=== PATIENT | female | born 1945 | race Caucasian/White ===

== ENCOUNTER 2018-01-09 16:30 | Inpatient (IN) | payer OTHER, MEDICARE ==
--- OUTSIDE RECORDS SUMMARY | 2018-01-09 16:32 | XMS REPORT | Summary of Care ---
:1945 Author Name HOLLIE ANN M.D. Address Unavailable Unavailable , Care Team Providers Name Role Phone SETH Ramirez, HOLLIE Unavailable Unavailable HEATHER MEAD MD Unavailable Unavailable SETH DAVID [place], JERO CASTILLO Unavailable Unavailable Unavailable Unavailable Unavailable Functional Status Name Dates Details Functional status health issues are not documented Status: Name Dates Details Cognitive status health issues are not documented Status: Problems Name Dates Details Injury of left wrist, initial encounter (959.3, S69.92XA) Status: Active Medications Name Dates Details Trulicity SOPN Refills: 0 Active MetFORMIN HCl - 1000 MG Oral Tablet Refills: 0 Active Naproxen TABS Refills: 0 Active Aspirin AD/Antacid TABS Refills: 0 Active Atorvastatin Calcium 10 MG Oral Tablet Refills: 0 Active Zolpidem Tartrate 10 MG Oral Tablet Refills: 0 Active Celecoxib CAPS Refills: 0 Active Metoprolol Succinate ER 25 MG Oral Tablet Extended Release 24 Hour Refills: 0 Active L-Thyroxine Sodium 88 MCG TABS Refills: 0 Active DULoxetine HCl - 30 MG Oral Capsule Delayed Release Particles Refills: 0 Active Lisinopril 20 MG Oral Tablet Refills: 0 Active Methylpred 4 MG TABS Refills: 0 Active Allergies and Adverse Reactions Name Dates Details No Known Drug Allergies (Allergy) Status: Active Past Medical History Name Dates Details History of arthritis (V13.4, Z87.39) Status: Resolved History of diabetes mellitus (V12.29, Z86.39) Status: Resolved History of hypertension (V12.59, Z86.79) Status: Resolved History of malignant neoplasm (V10.90, Z85.9) Status: Resolved History of osteoporosis (V13.59, Z87.39) Status: Resolved History of pneumonia (V12.61, Z87.01) Status: Resolved History of tumor (V13.89, Z87.898) Status: Resolved Procedures Procedure Dates Details History of Knee surgery Completed History of Hysterectomy Completed Immunization Name Dates Details Immunizations not documented Family History Name Dates Details Family history of arthritis (V17.7, Z82.61) Status: Active Family history of malignant neoplasm (V16.9, Z80.9) Status: Active Social History Name Dates Details - Status: Name Dates Details Never smoker Vital Signs Date Test Result Details No Known Vitals to report Results Date Description Value Details Results not documented Plan of Care Name Dates Details Planned Observations Planned Goals not documented Instructions Name Dates Details Instructions not documented Encounters Appointment; HOLLIE ANN M.D. On: 07-May-2017 13:15 Encounter Diagnosis: Problem not documented Appointment; HLOLIE ANN M.D. On: 16-May-2017 13:00 Encounter Diagnosis: Problem not documented Appointment; HOLLIE ANN M.D. On: 31-May-2017 13:30 Encounter Diagnosis: Problem not documented Appointment; HOLLIE ANN M.D. On: 07-Jun-2017 14:45 Encounter Diagnosis: Problem not documented Appointment; HOLLIE ANN M.D. On: 05-Jul-2017 13:00 Encounter Diagnosis: Problem not documented
--- OUTSIDE RECORDS SUMMARY | 2018-01-09 16:32 | XMS REPORT | Continuity of Care Document ---
:1945 Author Organization [facility] Address [address] [place] [address] Phone Unavailable Care Team Providers Name Role Phone HEATHER MEAD Primary Care Physician Insurance Providers Guarantor Frances Park Address [address] [place] [address] Email NONE Payer Medicare Policy Number [id number] Subscriber's Name Frances Park Relationship Self / Same As Patient Group Number NA Group Name NA Payer [facility] Healthcare Options Policy Number [id number] Subscriber's Name Frances Park Relationship Self / Same As Patient Group Number PLAN F Group Name [facility] Advance Directives Directive Response Recorded Date/Time Advance Directive on File No 12/29/17 4:30pm Resuscitation Status Full Code 12/31/17 1:13pm Name of Surrogate/Decision Maker NA 12/29/17 11:52am Patient/Family Given Education Material R/T Directives? No 12/29/17 4:30pm Chief Complaint and Reason for Visit Chief Complaint PNEUMONIA,DYSPNEA Reason for Visit Dyspnea Pneumonia Takotsubo cardiomyopathy Elevated troponin I level Mourning CAD (coronary artery disease) Problems Medical Problem Onset Date Status CAD (coronary artery disease) Unknown Acute Dyspnea Unknown Acute Elevated troponin Unknown Elevated troponin I level Unknown Acute Mourning Unknown Acute Pneumonia Unknown Acute Takotsubo cardiomyopathy Unknown Acute Medications Current Home Medications Medication Dose Units Route Directions Days Qty Instructions Start Date Apixaban * 2.5 Mg ORAL Twice A Day (Eliquis *) 2.5 Mg Tab Atorvastatin 40 Mg ORAL Once Daily At 30 Tablet 01/03/18 Calcium * Bedtime for (Lipitor *) 40 Dyslipidemia Mg Tab Furosemide 40 Mg ORAL Twice A Day for 60 Tablet 01/03/18 (Lasix 40 Mg*) Chf 40 Mg Tab Levofloxacin 1 Tab ORAL Daily for Uti 7 Tablet 01/03/18 (Levaquin 500 Mg*) 500 Mg Tab Lisinopril 20 Mg ORAL Twice A Day (Prinivil 20 Mg*) 20 Mg Tab Metoprolol 1 Tab ORAL Twice A Day 60 Tablet Tartrate (Lopressor *) 50 Mg Tab Social History Social History Problem Response Recorded Date/Time Onset Date Status Hx Recent Loss Y - 12/29/2017 4:30pm Not Applicable Not Applicable Smoking Status Start Date Stop Date Former smoker Hospital Discharge Instructions No hospital discharge instruction information available. Plan of Care Discharge Date 01/03/18 11:56am Disposition PATIENT DISCHARGE HOME OR SELF Instructions/Education Provided Furosemide tablets Shortness of Breath, Adult Atorvastatin tablets Levofloxacin tablets Community-Acquired Pneumonia, Adult Forms Provided Portal Welcome Letter Prescriptions See Medication Section Care Plan and Goals OK TO DC IV AND DC HOME FOLLOW-UP WITH PRIMARY CARE PROVIDER IN 1-2 WEEKS FOLLOW-UP WITH CARDIOLOGY IN 1-2 WEEKS RETURN TO THE ER IF SYMPTOMS WORSENS CALL DR. ALCANTAR AT [phone] IF ANY QUESTIONS REGARDING HOSPITAL STAY. PLEASE CALL THE FLOOR AT [phone] IF ANY MEDICATION OR NURSING QUESTIONS Functional Status No functional status information available. Allergies, Adverse Reactions, Alerts No known allergies. Immunizations No immunization information available. Vital Signs Acute Vital Signs Vital Response Date/Time Blood Pressure 144/73 mm Hg 01/03/2018 11:11am Pulse Pulse Rate (adult) 66 beats per minute (60 - 100) 01/03/2018 11:11am Respiratory Rate 18 breaths per minute (10 - 24) 01/03/2018 9:15am Temperature Source Oral 01/03/2018 9:15am Height 5 ft 6 in 12/29/2017 11:38am Weight 201.50 lb 01/03/2018 4:50am Body Mass Index 32.5 kg/m^2 01/03/2018 4:50am Results Laboratory Results Test Name Result Units Flags Reference Collection Result Comments Date/Time Date/Time White Blood Count 8.3 K/ul 4.0-11.5 01/02/2018 01/02/2018 RUN ON 5:24am 6:09am EMERALD Red Blood Count 4.48 M/ul 3.80-5.20 01/02/2018 01/02/2018 5:24am 6:09am Hemoglobin 13.2 g/dl 10.5-15.7 01/02/2018 01/02/2018 5:24am 6:09am Hematocrit 41.6 % 34.0-50.0 01/02/2018 01/02/2018 5:24am 6:09am Mean Corpuscular 92.8 fl 78-98 01/02/2018 01/02/2018 Volume 5:24am 6:09am Mean Corpuscular 29.5 pg 26.2-33.4 01/02/2018 01/02/2018 Hemoglobin 5:24am 6:09am Mean Corpuscular 31.7 g/dl 31.5-36.2 01/02/2018 01/02/2018 Hemoglobin Concent 5:24am 6:09am Red Cell 14.5 % 11.5-15.5 01/02/2018 01/02/2018 Distribution Width 5:24am 6:09am Platelet Count 185 K/ul 137-338 01/02/2018 01/02/2018 5:24am 6:09am Mean Platelet 10.1 fl 8.4-11.8 01/02/2018 01/02/2018 Volume 5:24am 6:09am Neutrophils (%) 68.6 % 44.4-80.1 01/02/2018 01/02/2018 (Auto) 5:24am 6:09am Lymphocytes (%) 23.5 % 10.0-50.0 01/02/2018 01/02/2018 (Auto) 5:24am 6:09am Monocytes (%) 7.9 % 3.6-12.04 01/02/2018 01/02/2018 (Auto) 5:24am 6:09am Eosinophils (%) 1.5 % 0.0-5.41 01/01/2018 01/01/2018 (Auto) 5:37am 5:40am Basophils (%) 0.7 % 0.0-0.79 01/01/2018 01/01/2018 (Auto) 5:37am 5:40am Prothrombin Time 10.9 SECONDS 10.3-12.3 12/29/2017 12/29/2017 11:47am 12:05pm THERAPEUTIC LEVEL: 1.5 to 1.9 times normal range of PT Prothromb Time 0.99 12/29/2017 12/29/2017 International 11:47am 12:05pm Recommended therapeutic range for patients receiving Ratio warfarin (coumadin) therapy: INR is 2.0 to 3.0 Recommended range for patients with mechanical prosthetic heart valves: INR is 2.5 to 3.5 Activated Partial 28.4 SECONDS 22.5-37.0 12/29/2017 12/29/2017 Thromboplast Time 11:47am 12:05pm POC Capillary 239 mg/dL H 70.0 - 110 01/03/2018 01/03/2018 Blood Glucose 11:25am 11:26am (Chem) Random Glucose 188 mg/dL H 82-115 01/02/2018 01/02/2018 7:10am 7:56am Blood Urea 20 mg/dL 8-01/02/2018 01/02/2018 Nitrogen 7:10am 7:56am Serum Osmolality 289 280-300 01/02/2018 01/02/2018 7:10am 7:56am Creatinine 0.7 mg/dL 0.50-0.90 01/02/2018 01/02/2018 7:10am 7:56am Glomerular > 60.00 01/02/2018 01/02/2018 GFR RESULTS ARE REPORTED IN mL/min/1.73m2. Filtration Rate 7:10am 7:56am Calc Normal GFR: >60mL/min Moderately decreased GFR: 30-59 mL/min Severely decreased GFR: 15-29 mL/min Kidney Failure (or Dialysis): <15 mL/min The calculated eGFR is not valid for patients younger than 18 years or older than 75 years. BUN/Creatinine 28.6 H 12-20 01/02/2018 01/02/2018 Ratio 7:10am 7:56am Sodium Level 141 mmol/L 135-145 01/02/2018 01/02/2018 7:10am 7:56am Potassium Level 3.3 mmol/L L 3.5-5.2 01/02/2018 01/02/2018 7:10am 7:56am Chloride Level 95 mmol/L L 98-108 01/02/2018 01/02/2018 7:10am 7:56am Carbon Dioxide 33 mmol/L H 21-32 01/02/2018 01/02/2018 Level 7:10am 7:56am Anion Gap 16.3 mEq/L 12-20 01/02/2018 01/02/2018 7:10am 7:56am Calcium Level 9.1 mg/dL 8.8-10.2 01/02/2018 01/02/2018 7:10am 7:56am Phosphorus Level 2.7 mg/dL 2.5-4.5 01/02/2018 01/02/2018 7:10am 7:56am Magnesium Level 1.6 mg/dL 1.6-2.4 01/02/2018 01/02/2018 7:10am 7:56am Total Protein 6.6 g/dL 6.6-8.7 01/02/2018 01/02/2018 7:10am 7:56am Albumin 3.4 g/dL L 3.5-5.2 01/02/2018 01/02/2018 7:10am 7:56am Globulin 3.2 gm/dL 01/02/2018 01/02/2018 7:10am 7:56am Albumin/Globulin 1.1 >1.0 01/02/2018 01/02/2018 Ratio 7:10am 7:56am Total Bilirubin 0.5 mg/dL 0.0-1.2 01/02/2018 01/02/2018 7:10am 7:56am Aspartate Amino 71 U/L #H 15-32 01/02/2018 01/02/2018 Transf (AST/SGOT) 7:10am 7:56am Alanine 71 U/L H 0-33 01/02/2018 01/02/2018 Aminotransferase 7:10am 7:56am (ALT/SGPT) RD-Aiy-F-Type 2023 pg/mL H 0-125 12/29/2017 12/29/2017 Natriuretic 11:47am 12:11pm Peptide Total Alkaline 92 U/L 35-105 01/02/2018 01/02/2018 Phosphatase 7:10am 7:56am Creatine Kinase 123 U/L 20-180 12/31/2017 12/31/2017 5:06am 5:39am Troponin I 1.02 ng/mL #H* 0.0-0.5 12/31/2017 12/31/2017 Results have been broadcasted to patient's location and 5:06am 5:51am called to (rosa)Nolberto By ROSALVA RODRIGUEZ 12/31/17 @0547 Results read back for confirmation. Creatine Kinase MB 4.3 ng/ml H 0.0-3.6 12/31/2017 12/31/2017 5:06am 5:51am DIAGNOSTIC CITERIA: CKMB CKMB RELATIVE INDEX SUGGESTIVE OF NON-AMI < or=5 N/A LARKIN ZONE (INCONCLUSIVE) > 5 < or=4 SUGGESTIVE OF AMI >5 > 4 Myoglobin 73 ng/mL H 25-58 12/29/2017 12/29/2017 11:47am 12:11pm Microbiology Results Procedure Source Organism/Result Collection Result Result Status Date/Time Date/Time Blood Culture Blood SPECIMEN HAS BEEN 12/29/2017 12/29/2017 Preliminary RECEIVED IN LAB AND 2:34pm 2:36pm IS IN PROGRESS. Procedures Procedure Status Date Provider(s) X-ray of chest, single view Completed 12/29/17 DIONISIO MORALES MD Computed tomography angiography of chest for Completed 12/29/17 DIONISIO MORALES MD pulmonary embolism CT thorax wo contrast Completed 01/01/18 LAURA SMITH Computed tomography of abdomen without contrast Completed 01/01/18 LAURA SMITH Encounters Encounter Location Arrival/Admit Date Discharge/Depart Date Attending Provider Admitted Kaden 12/29/17 3:44pm MY [facility] Recent Diagnosis Dyspnea Pneumonia Takotsubo cardiomyopathy Elevated troponin I level Mourning CAD (coronary artery disease)
--- NOTE | 2018-01-09 17:45 | RAD REPORT ---
EXAM DESCRIPTION: RAD - Chest Single View - 01/09/2018 5:36 pm CLINICAL HISTORY: SOB Chest pain. COMPARISON: CHEST PA AND LAT 2 VIEW dated 03/13/2012; CHEST SINGLE VIEW dated 02/29/2012; CHEST PA A ND LAT 2 VIEW dated 02/06/2012; CHEST PA AND LAT 2 VIEW dated 11/04/2010 FINDINGS: Portable technique limits examination quality. The lungs are grossly clear. The heart is moderately prominent in size. No displaced fractures.Aortic atherosclerosis. IMPRESSION: Moderate cardiomegaly.
[2018-01-09 18:06] LABS: Absolute Lymphocytes (CBC) 2.2 K/uL (0.7-4.9); Absolute Monocytes 0.8 K/uL (0.1-1.3); Absolute Neutrophil 4.8 K/uL (1.8-8.0); Basophils % 1.1 % (0-1.3); Eosinophils % 1.3 % (0-4.4); Hematocrit 41.8 % (36.0-45.0); Lymphocytes % 27.1 % (15.3-44.8); MCH 29.7 pg (27.0-35.0); MCV 89.4 fL (80-100); Monocytes % 10.5 % (3.3-12.3); RBC Red Blood Cell Count 4.68 M/uL (3.86-4.86)
[2018-01-09 18:14] LABS: Protime INR 1.64
[2018-01-09] MEDS ORDERED: ONDANSETRON 4 MG/2 ML VIAL ONE (18:17)
[2018-01-09] MEDS ORDERED: FENTANYL CITR 100 MCG/2 ML ONE (18:17)
[2018-01-09] MEDS ORDERED: NA CHLORIDE 0.9% 250 ML ONE ×2 (18:27→18:52)
[2018-01-09 18:32] LABS: Albumin 3.9 g/dL (3.4-5.0); Bilirubin Direct 0.2 mg/dL (0-0.2); Bilirubin Total 0.5 mg/dL (0.2-1.0); Magnesium 1.8 mg/dL (1.8-2.4); Potassium 3.9 mmol/L (3.5-5.1); Protein, Total 7.7 g/dL (6.4-8.2); Troponin (Emerg Dept Use Only) 0.02 ng/mL (0.0-0.045)
[2018-01-09 19:24] LABS: Urine Bacteria 20-50 /HPF (<20); Urine Culture Reflex Order NOT NEEDED
[2018-01-09 19:34] LABS: Urine Blood TRACE (NEG); Urine Glucose NEGATIVE (NEG); Urine Protein NEGATIVE (NEG); Urine Specific Gravity >1.030 (1.005-1.030)
[2018-01-09] MEDS ORDERED: NA CHLORIDE 0.9% 1,000 ML ONE (20:00)
--- NOTE | 2018-01-09 20:44 | EDPHYS ---
Physician Documentation [facility] Name: Yamileth Taylor Age: 72 yrs Sex: Female : 1945 Arrival Date: 01/09/2018 Time: 16:39 Bed 30 Private MD: ED Physician Alok Ivey HPI: 01/09 17:15 This 72 yrs old Female presents to ER via EMS with complaints of Shortness Of cp Breath. 17:15 The patient has shortness of breath at rest, that occurred at home, suddenly, now cp resolved. Patient reports she believes it was due to anxiety. 17:15 Duration: The symptoms single episode. Associated signs and symptoms: Pertinent cp positives: nausea, vomiting, general weakness, Pertinent negatives: chest pain, productive cough, diaphoresis, dizziness, fever, hemoptysis. Severity of symptoms: in the emergency department the symptoms have improved. Historical: - Allergies: 16:47 No Known Allergies; kr2 - Home Meds: 16:47 Metformin Oral [Active]; Lantus Sub-Q [Active]; Lisinopril Oral [Active]; Lasix Oral kr2 [Active]; levothyroxine oral [Active]; Eliquis oral oral [Active]; Metoprolol Tartrate Oral [Active]; - PMHx: 16:47 Atrial Fib; Hypertension; Myocardial infarction; kr2 16:51 Rheumatoid Arthritis; kr2 - PSHx: 16:47 Hysterectomy; Cardiac Cath; Wrist; kr2 - Immunization history:: Adult Immunizations up to date. - Social history:: Smoking status: Patient/guardian denies using tobacco. - Ebola Screening: : No symptoms or risks identified at this time. ROS: 17:22 Constitutional: Positive for poor PO intake, Negative for body aches, chills, fever. cp 17:22 Eyes: Negative for injury, pain, redness, and discharge. cp 17:22 ENT: Negative for drainage from ear(s), ear pain, sore throat, difficulty swallowing, difficulty handling secretions. 17:22 Cardiovascular: Negative for chest pain, edema, palpitations. 17:22 Respiratory: Positive for shortness of breath, Negative for cough, wheezing. 17:22 Abdomen/GI: Positive for nausea, vomiting, Negative for abdominal pain, diarrhea, constipation, black/tarry stool, rectal bleeding. 17:22 Back: Negative for pain at rest, pain with movement. 17:22 Skin: Negative for cellulitis, rash. 17:22 Neuro: Positive for general weakness, Negative for altered mental status, dizziness, headache, syncope, near syncope. 17:22 All other systems are negative. Exam: 16:53 ECG was reviewed by the Attending Physician. cp 17:28 Constitutional: The patient appears in no acute distress, alert, awake, cp non-diaphoretic, non-toxic, well developed, well nourished. 17:28 Head/Face: Normocephalic, atraumatic. Eyes: Pupils equal round and reactive to light, cp extra-ocular motions intact. Lids and lashes normal. Conjunctiva and sclera are non-icteric and not injected. Cornea within normal limits. Periorbital areas with no swelling, redness, or edema. 17:28 ENT: External ear(s): are unremarkable, Ear canal(s): are normal, clear, TM's: bulging, is not appreciated, bilaterally, dullness, bilaterally, erythema, is not appreciated, bilaterally, Nose: is normal, Mouth: Lips: dry, Oral mucosa: dry, Posterior pharynx: Airway: no evidence of obstruction, patent, Uvula: midline, swelling, is not appreciated, erythema, that is mild, exudate, is not appreciated, Voice: is normal. 17:28 Neck: ROM/movement: is normal, is supple, without pain, no range of motions limitations, no meningismus, no nuchal rigidity. 17:28 Chest/axilla: Inspection: normal, Palpation: is normal, no crepitus, no tenderness. 17:28 Cardiovascular: Rate: normal, Rhythm: regular, Edema: is not appreciated, JVD: is not appreciated. 17:28 Respiratory: the patient does not display signs of respiratory distress, Respirations: normal, no use of accessory muscles, no retractions, no splinting, no tachypnea, Breath sounds: decreased breath sounds, that are mild, are located in both bases, stridor, is not appreciated, wheezing: is not appreciated. 17:28 Abdomen/GI: Inspection: abdomen appears normal, Bowel sounds: active, all quadrants, Palpation: abdomen is soft and non-tender, in all quadrants, rebound tenderness, is not appreciated, voluntary guarding, is not appreciated, involuntary guarding, is not appreciated. 17:28 Back: pain, that is mild, of the mid back area, ROM is normal. 17:28 Skin: cellulitis, is not appreciated, no rash present. 17:28 Neuro: Orientation: to person, place \T\ time. Mentation: lucid, able to follow commands, Cerebellar function: is grossly normal, Motor: moves all fours, general weakness w/o focal deficits, Sensation: no obvious gross deficits. Vital Signs: 16:49 BP 91 / 79; Pulse 76; Resp 16; Temp 99; Pulse Ox 99% on R/A; Weight 88.45 kg; Height 5 kr2 ft. 4 in. (162.56 cm); Pain 0/10; 17:05 BP 96 / 79; Pulse 67; Resp 20; Pulse Ox 96% ; kr2 19:14 BP 97 / 60; Pulse 78; Resp 15; Pulse Ox 100% on R/A; kr2 23:09 BP 124 / 72; Pulse 71; Resp 17; Pulse Ox 98% on R/A; kr2 16:49 Body Mass Index 33.47 (88.45 kg, 162.56 cm) kr2 MDM: 17:08 Patient medically screened. cp 19:00 Data reviewed: vital signs, nurses notes, lab test result(s), EKG, radiologic studies, cp plain films. 19:00 Test interpretation: by ED physician or midlevel provider: ECG, plain radiologic cp studies. 19:20 Physician consultation: Ta Kam MD was contacted at 19:20, regarding admission, cp to the telemetry unit. patient's condition. 01/09 17:16 Order name: Basic Metabolic Panel; Complete Time: 18:39 cp 01/09 18:39 Interpretation: Normal except: NA 135; CL 93; GLUC 131; BUN 60; CRE 5.00; GFR 9. cp 01/09 17:16 Order name: CBC with Diff; Complete Time: 18:21 cp 01/09 18:21 Interpretation: Normal except: RDW 15.7. cp 01/09 17:16 Order name: LFT's; Complete Time: 18:39 cp 01/09 20:44 Interpretation: Normal except: GLOB 3.8; A/G 1.0. cp 01/09 17:16 Order name: Magnesium; Complete Time: 18:39 cp 01/09 17:16 Order name: NT PRO-BNP; Complete Time: 18:39 cp 01/09 20:44 Interpretation: Abnormal: NT PRO-BNP 3524. cp 01/09 17:16 Order name: PT-INR; Complete Time: 18:21 cp 01/09 18:21 Interpretation: Abnormal: PT 19.4. cp 01/09 17:16 Order name: Troponin (emerg Dept Use Only); Complete Time: 18:39 cp 01/09 17:16 Order name: XRAY Chest (1 view); Complete Time: 18:21 cp 01/09 18:21 Interpretation: Report review. cp 01/09 17:16 Order name: Urine Microscopic Only; Complete Time: 19:47 cp 01/09 20:44 Interpretation: Normal except: URBC 5-10; UBACT 20-50; SQEPI LOADED. cp 01/09 19:02 Order name: Urine Dipstick--Ancillary (enter results); Complete Time: 19:47 bd 01/09 16:49 Order name: EKG - Nurse/Tech; Complete Time: 16:49 kr2 01/09 17:16 Order name: EKG; Complete Time: 17:17 cp 01/09 17:16 Order name: Cardiac monitoring; Complete Time: 17:48 cp 01/09 17:16 Order name: IV Saline Lock; Complete Time: 17:48 cp 01/09 17:16 Order name: Labs collected and sent; Complete Time: 17:48 cp 01/09 17:16 Order name: O2 Per Protocol; Complete Time: 17:48 cp 01/09 17:16 Order name: O2 Sat Monitoring; Complete Time: 17:48 cp 01/09 17:16 Order name: Urine Dipstick-Ancillary (obtain specimen); Complete Time: 19:07 cp 01/09 19:15 Order name: Misc. Order: monitor renal output; Complete Time: 19:19 cp 01/09 21:00 Order name: CONS Physician Consult EDMS EC:53 Rate is 70 beats/min. Rhythm is irregularly irregular. QRS interval is normal at 80 cp msec. QT interval is normal. T waves are Inverted in leads aVL, V2, V3. Interpreted by me. Reviewed by me. Administered Medications: 18:13 Drug: fentaNYL (PF) 25 mcg Route: IVP; Site: right forearm; kr2 18:30 Follow up: Response: No adverse reaction; Pain is decreased kr2 18:23 Drug: NS 0.9% 250 ml Route: IV; Rate: bolus; Site: right forearm; kr2 19:10 Follow up: Response: No adverse reaction; IV Status: Completed infusion kr2 19:06 Drug: fentaNYL (PF) 25 mcg Route: IVP; Site: right forearm; kr2 19:19 Follow up: Response: No adverse reaction; Pain is decreased kr2 19:07 Drug: NS 0.9% 250 ml Route: IV; Rate: bolus; Site: right forearm; kr2 19:42 Follow up: Response: No adverse reaction; IV Status: Completed infusion kr2 19:49 Not Given (Physician Discretion): NS 0.9% 250 ml IV at calculated rate once cp 20:13 Drug: NS 0.9% 1000 ml Route: IV; Rate: 1000 ml; Site: right forearm; kr2 21:30 Follow up: Response: No adverse reaction kr2 Disposition: 01/09/18 20:43 Hospitalization ordered by Ta Kam for Inpatient Admission. Preliminary diagnosis is Acute kidney failure. - Bed requested for Telemetry/MedSurg (Inpatient). - Status is Inpatient Admission. kr2 - Condition is Stable. - Problem is new. - Symptoms have improved. UTI on Admission? No Signatures: Dispatcher [employer] EDMS Zac Gillis PA PA cp Thompson, [facility] Deborah Brasher RN RN kr2 Corrections: (The following items were deleted from the chart) 18:28 18:28 This 72 yrs old Female presents to ER via EMS with complaints of cp Shortness Of Breath. cp 22:19 20:43 Hospitalization Ordered by Ta Kam MD for Inpatient Admission. Preliminary mt diagnosis is Acute kidney failure. Bed requested for Telemetry/MedSurg (Inpatient). Status is Inpatient Admission. Condition is Stable. Problem is new. Symptoms have improved. UTI on Admission? No. cp 23:45 19:50 Patterson ordered. cp kr2 01/10 00:02 01/09 22:19 01/09/2018 20:43 Hospitalization Ordered by Ta Kam MD for Inpatient kr2 Admission. Preliminary diagnosis is Acute kidney failure. Bed requested for Telemetry/MedSurg (Inpatient). Status is Inpatient Admission. Condition is Stable. Problem is new. Symptoms have improved. UTI on Admission? No. mt
--- NOTE | 2018-01-09 20:44 | ER ---
Nurse's Notes [facility] Name: Yamileth Taylor Age: 72 yrs Sex: Female : 1945 Arrival Date: 01/09/2018 Time: 16:39 Bed 30 Private MD: Diagnosis: Acute kidney failure Presentation: 01/09 16:39 Presenting complaint: EMS states: Patient called them complaining of feeling short of kr2 breath, upon arrival to residence she anxious and was breathing fast but it resolved after calming her down. She was seen at [facility] 2 weeks ago for pneumonia and blood work showed she had a heart attack. They told her that her heart function was at 42%. Vital signs 113/70, pulse 69, blood glucose 137. Transition of care: patient was not received from another setting of care. Onset of symptoms was January 09, 2018 at 16:00. Risk Assessment: Do you want to hurt yourself or someone else? Patient reports no desire to harm self or others. Initial Sepsis Screen: Does the patient meet any 2 criteria? No. Patient's initial sepsis screen is negative. Does the patient have a suspected source of infection? No. Patient's initial sepsis screen is negative. Care prior to arrival: None. 16:39 Method Of Arrival: EMS: [facility] kr2 16:39 Acuity: LUCI 3 kr2 Triage Assessment: 16:47 General: Appears in no apparent distress. comfortable, well groomed, well developed, kr2 well nourished, Behavior is cooperative, anxious. Pain: Denies pain. EENT: Nares are clear Oral mucosa is moist. Neuro: Level of Consciousness is awake, alert, obeys commands, Oriented to person, place, time, situation, Appropriate for age. Cardiovascular: Denies chest pain, Capillary refill < 3 seconds in bilateral fingers Patient's skin is warm and dry. Rhythm is. Respiratory: Reports shortness of breath at rest Airway is patent Respiratory effort is even, unlabored, Respiratory pattern is regular, symmetrical, Onset: The symptoms/episode began/occurred just prior to arrival, the patient reports symptoms have resolved. GI: Abdomen is flat. Derm: Skin is intact, is fragile, Skin is pink, warm \T\ dry. Bruising that is dark purple, on bilateral upper arms. Musculoskeletal: Circulation, motion, and sensation intact. Historical: - Allergies: 16:47 No Known Allergies; kr2 - Home Meds: 16:47 Metformin Oral [Active]; Lantus Sub-Q [Active]; Lisinopril Oral [Active]; Lasix Oral kr2 [Active]; levothyroxine oral [Active]; Eliquis oral oral [Active]; Metoprolol Tartrate Oral [Active]; - PMHx: 16:47 Atrial Fib; Hypertension; Myocardial infarction; kr2 16:51 Rheumatoid Arthritis; kr2 - PSHx: 16:47 Hysterectomy; Cardiac Cath; Wrist; kr2 - Immunization history:: Adult Immunizations up to date. - Social history:: Smoking status: Patient/guardian denies using tobacco. - Ebola Screening: : No symptoms or risks identified at this time. Screenin:51 Abuse screen: Denies threats or abuse. Denies injuries from another. Nutritional kr2 screening: No deficits noted. Tuberculosis screening: No symptoms or risk factors identified. Fall Risk None identified. Assessment: 16:40 Reassessment: See triage assessment. Cardiovascular: Patient's skin is warm and dry. kr2 Rhythm is regular. Respiratory: Airway is patent Respiratory effort is even, unlabored, Respiratory pattern is regular, symmetrical, Breath sounds are clear bilaterally. 19:13 Reassessment: Patient instructed to keep a strict measurement of urine output, given kr2 hat for toilet. Patient verbalizes understanding. 20:01 Reassessment: Patient appears in no apparent distress at this time. Patient and/or kr2 family updated on plan of care and expected duration. Pain level reassessed. Patient is alert, oriented x 3, equal unlabored respirations, skin warm/dry/pink. Provider ordered montana insertion. I asked provider if we can monitor output by strict measurement due to patient being A\T\O, ambulatory and continent. Provider says to continue with montana insertion. Patient informed provider ordered montana insertion for strict monitoring of output due to kidney failure, instructed on placement procedure and risks. Patient states she wants to speak to admitting physician prior to insertion of catheter. 21:00 Reassessment: Patient appears in no apparent distress at this time. Patient and/or kr2 family updated on plan of care and expected duration. Pain level reassessed. Patient is alert, oriented x 3, equal unlabored respirations, skin warm/dry/pink. Patient denies pain at this time. 22:00 Reassessment: Patient appears in no apparent distress at this time. Patient and/or kr2 family updated on plan of care and expected duration. Pain level reassessed. Patient is alert, oriented x 3, equal unlabored respirations, skin warm/dry/pink. Patient denies pain at this time. 23:22 Reassessment: Patient refused montana catheter, provider notified. kr2 Vital Signs: 16:49 BP 91 / 79; Pulse 76; Resp 16; Temp 99; Pulse Ox 99% on R/A; Weight 88.45 kg; Height 5 kr2 ft. 4 in. (162.56 cm); Pain 0/10; 17:05 BP 96 / 79; Pulse 67; Resp 20; Pulse Ox 96% ; kr2 19:14 BP 97 / 60; Pulse 78; Resp 15; Pulse Ox 100% on R/A; kr2 23:09 BP 124 / 72; Pulse 71; Resp 17; Pulse Ox 98% on R/A; kr2 16:49 Body Mass Index 33.47 (88.45 kg, 162.56 cm) kr2 ED Course: 16:39 Patient arrived in ED. kr2 16:42 Triage completed. kr2 16:52 EKG done, by dietetic tech. reviewed by Alok Ivey MD. sm3 16:52 Arm band placed on. kr2 16:55 Deborah Brasher, RN is Primary Nurse. kr2 17:00 Warm blanket given. night monitor on. Pulse ox on. NIBP on. jp3 17:08 Zac Gillis PA is PHCP. cp 17:08 Alok Ivey MD is Attending Physician. cp 17:36 XRAY Chest (1 view) In Process Unspecified. EDMS 17:45 Initial lab(s) drawn, by nd, sent to lab. Inserted saline lock: 24 gauge in right jp3 forearm, using aseptic technique. Blood collected. 17:48 Troponin (emerg Dept Use Only) Sent. jp3 17:48 Basic Metabolic Panel Sent. jp3 17:48 CBC with Diff Sent. jp3 17:48 LFT's Sent. jp3 17:48 Magnesium Sent. jp3 17:48 NT PRO-BNP Sent. jp3 17:48 PT-INR Sent. jp3 17:48 Bed in low position. Call light in reach. Side rails up X 1. jp3 20:43 Ta Kam MD is Hospitalizing Provider. cp 01/10 00:00 No provider procedures requiring assistance completed. Patient admitted, IV remains in kr2 place. Administered Medications: 01/09 18:13 Drug: fentaNYL (PF) 25 mcg Route: IVP; Site: right forearm; kr2 18:30 Follow up: Response: No adverse reaction; Pain is decreased kr2 18:23 Drug: NS 0.9% 250 ml Route: IV; Rate: bolus; Site: right forearm; kr2 19:10 Follow up: Response: No adverse reaction; IV Status: Completed infusion kr2 19:06 Drug: fentaNYL (PF) 25 mcg Route: IVP; Site: right forearm; kr2 19:19 Follow up: Response: No adverse reaction; Pain is decreased kr2 19:07 Drug: NS 0.9% 250 ml Route: IV; Rate: bolus; Site: right forearm; kr2 19:42 Follow up: Response: No adverse reaction; IV Status: Completed infusion kr2 19:49 Not Given (Physician Discretion): NS 0.9% 250 ml IV at calculated rate once cp 20:13 Drug: NS 0.9% 1000 ml Route: IV; Rate: 1000 ml; Site: right forearm; kr2 21:30 Follow up: Response: No adverse reaction kr2 Intake: 19:18 IV: 500ml; Total: 500ml. kr2 21:23 PO: 80ml (Water); Total: 580ml. kr2 23:09 PO: 120ml (Water); IV: 1000ml (IV Fluid); Total: 1700ml. kr2 Output: 19:18 Urine: 50ml (Voided); Total: 50ml. kr2 21:23 Urine: 100ml; Total: 150ml. kr2 01/10 00:01 Urine: 125ml (Voided); Total: 275ml. kr2 Outcome: 01/09 20:43 Decision to Hospitalize by Provider. cp 01/10 00:00 Admitted to Tele accompanied by nurse, family with patient, via wheelchair, room 208, kr2 with chart, Report called to Jazmin Condition: good Instructed on the need for admit, Demonstrated understanding of instructions, follow-up care. 00:02 Patient left the ED. kr2 Signatures: Dispatcher [employer] EDMS Zac Gillis PA PA cp Reaves, Karey, RN RN kr2 Marielle Sanchez 3 Tunde Garcia jp3 Corrections: (The following items were deleted from the chart) 01/09 21:09 20:01 Reassessment: Patient appears in no apparent distress at this time. Patient kr2 and/or family updated on plan of care and expected duration. Pain level reassessed. Patient is alert, oriented x 3, equal unlabored respirations, skin warm/dry/pink. Provider ordered montana insertion. I asked provider if we can monitor output by strict measurement due to patient being A\T\O, ambulatory and continent. Provider says to continue with montana insertion. Patient informed provider order montana insertion for monitoring of output, instructed on placement and risk of infection. Patient wants to speak to admitting physician prior to insertion of catheter kr2
--- NOTE | 2018-01-09 22:50 | P.HP ---
Certification for Inpatient Patient admitted to: Inpatient With expected LOS: >2 Midnights Practitioner: I am a practitioner with admitting privileges, knowledge of patient current condition, hospital course, and medical plan of care. Services: Services provided to patient in accordance with Admission requirements found in Title 42 Section 412.3 of the Code of Federal Regulations Patient History Date of Service: 01/09/18 Reason for admission: Acute renal failure History of Present Illness: Ms Taylor is a 72-year-old woman with history of diabetes mellitus, CAD, hypertension was admitted 2 weeks ago in [facility] due to pneumonia. In that admission the patient had a ACS. She had cardiac catheterization, showing mild CAD without need to place a stent. Once the patient was discharged home, she progressively start feeling weak. Then she has had nausea and vomiting, unable to tolerate p.o. no history of diarrhea, fever or chills. She was discharged with Lasix as part of her home medication. Lab work in ER remarkable for elevated creatinine 5.0 and normal WBC count. Allergies No Known Allergies Allergy (Unverified 01/09/18 21:45) Home medications list reviewed: Yes - Past Medical/Surgical History -: Diabetes mellitus -: CAD -: Hypertension -: Atrial fibrillation -: Cardiac catheterization -: Hysterectomy - Family History Family History: Reviewed- Non-Contributory - Social History Smoking Status: Former smoker Alcohol use: Yes CD- Drugs: No Place of Residence: Home Review of Systems 10-point ROS is otherwise unremarkable Physical Examination - Physical Exam General: Alert, In no apparent distress HEENT: Atraumatic, PERRLA, Mucous membr. moist/pink, EOMI, Sclerae nonicteric Neck: Supple, 2+ carotid pulse no bruit, No LAD, Without JVD or thyroid abnormality Respiratory: Clear to auscultation bilaterally, Normal air movement Cardiovascular: Regular rate/rhythm, Normal S1 S2 Gastrointestinal: Normal bowel sounds, No tenderness Musculoskeletal: No tenderness Integumentary: No rashes Neurological: Normal speech, Normal strength at 5/5 x4 extr, Normal tone, Normal affect Lymphatics: No axilla or inguinal lymphadenopathy - Studies Laboratory Data (last 24 hrs) 01/09/18 17:40: PT 19.4 H, INR 1.64 01/09/18 17:40: WBC 7.9, Hgb 13.9, Hct 41.8, Plt Count 359 01/09/18 17:40: Sodium 135 L, Potassium 3.9, BUN 60 H, Creatinine 5.00 H, Glucose 131 H, Magnesium 1.8, Total Bilirubin 0.5, AST 17, ALT 28, Alkaline Phosphatase 82 Assessment and Plan - Problems (Diagnosis) (1) Acute renal injury Current Visit: Yes Status: Acute (2) Nausea & vomiting Current Visit: Yes Status: Acute Qualifiers: Vomiting type: unspecified Vomiting Intractability: unspecified Qualified Code(s): R11.2 - Nausea with vomiting, unspecified (3) Weakness Current Visit: Yes Status: Acute (4) Volume depletion Current Visit: Yes Status: Acute - Plan The patient will be admitted to the hospital due to nausea, vomiting and weakness secondary to acute renal injury. The etiology could be a combination of excess diuresis on top of previous contrast induced kidney injury, will continue challenging with fluids, consult church supervisor for evaluation recommendation. - Advance Directives Does patient have a Living Will: Yes Does patient have a Durable POA for Healthcare: No - Code Status/Comfort Care Code Status Assessed: Yes Code Status: Full Code
[2018-01-09] MEDS ORDERED: ACETAMINOPHEN 500 MG TAB PO PRN (23:05)
[2018-01-09] MEDS ORDERED: ONDANSETRON 4 MG/2 ML VIAL IV PRN (23:05)
[2018-01-10] MEDS: NA CHLORIDE 0.9% 1,000 ML IV SCH ×3 (00:39→14:27)
[2018-01-10] MEDS ORDERED: GLUCAGON 1 MG/VIAL IM PRN (03:36)
[2018-01-10] MEDS ORDERED: D50W 25 GM/50 ML SYRINGE IV PRN (03:36)
[2018-01-10] MEDS: TRAMADOL HCL 50 MG TAB PO PRN ×2 (03:52→14:26)
[2018-01-10 05:21] LABS: Absolute Lymphocytes (CBC) 1.6 K/uL (0.7-4.9); Absolute Monocytes 0.7 K/uL (0.1-1.3); Absolute Neutrophil 4.5 K/uL (1.8-8.0); Basophils % 1.2 % (0-1.3); Hematocrit 38.4 % (36.0-45.0); Lymphocytes % 22.3 % (15.3-44.8); MCH 29.4 pg (27.0-35.0); MPV 10.2 fL (7.6-11.3); Monocytes % 10.5 % (3.3-12.3); RBC Red Blood Cell Count 4.26 M/uL (3.86-4.86)
[2018-01-10 05:30] LABS: Potassium 3.3 mmol/L (3.5-5.1)
[2018-01-10 05:32] LABS: Urine Appearance CLEAR; Urine Bilirubin NEGATIVE (NEG); Urine Blood NEGATIVE (NEG); Urine Color YELLOW; Urine Glucose NEGATIVE (NEG); Urine Protein NEGATIVE (NEG); Urine Specific Gravity 1.015 (1.005-1.030); Urine Urobilinogen 0.2 mg/dL (0.2-1.0); Urine pH 5.5 (5.0-7.0)
[2018-01-10 05:34] LABS: Urine Microscopic Reflex NO UMIC
[2018-01-10] MEDS ORDERED: POTASSIUM 25 MEQ EFFERV TAB PO ONE (05:45)
--- NOTE | 2018-01-10 07:14 | EKG ---
Test Date: 2018-01-09 Test Time: 16:49:12 Field Radio Technician: JUDY MEASUREMENT RESULTS: Intervals: Rate: 70 CA: QRSD: 80 QT: 428 QTc: 462 [place]: P: CA: QRS: -44 T: 97 INTERPRETIVE STATEMENTS: Atrial fibrillation Left axis deviation Nonspecific T wave abnormality, probably digitalis effect Abnormal ECG Compared to ECG 11/04/2010 08:16:50 Left-axis deviation now present T-wave abnormality now present Sinus rhythm no longer present Electronically Signed On 01-10-18 07:13:09 CDT by Hong Bustamante
[2018-01-10] MEDS: INSULIN -REGULAR HUMAN 50 UNIT/0.5 ML ML SQ SCH ×4 (07:30→21:00)
[2018-01-10] MEDS: HEPARIN 5000 UNIT/ML 1 ML VIAL SQ SCH ×2 (07:59→21:48)
--- NOTE | 2018-01-10 09:50 | RAD REPORT ---
EXAM DESCRIPTION: US - Renal Ultrasound-Complete - 01/10/2018 9:34 am CLINICAL HISTORY: acute renal failure COMPARISON: No comparisons FINDINGS: Both kidneys are normal in size, shape and echotexture. The right kidney measures 9.0 x 5.8 x 5.0 cm. No hydronephrosis, focal mass or perinephric fluid. The left kidney measures 8.9 x 5.7 x 5.1 cm. No hydronephrosis, focal mass or perinephric fluid. The urinary bladder is incompletely distended without gross abnormality seen. IMPRESSION: Unremarkable renal sonogram.
[2018-01-10 10:32] LABS: Uric Acid 14.6 mg/dL (2.6-6.0)
[2018-01-10 10:37] LABS: Thyroid Stimulating Hormone 6.14 uIU/mL (0.360-3.740)
[2018-01-10] MEDS ORDERED: MAGNESIUM SULFATE 1 gm IVPB 1 GM/100 ML BAG IV ONE (12:22)
[2018-01-10] MEDS ORDERED: POTASSIUM CL SA 10 MEQ TAB PO ONE (15:00)
--- NOTE | 2018-01-10 15:40 | CON ---
Date of Consultation: 01/10/2018 Consulting Physician: Hospitalist. History Of Present Illness: This is a pleasant 72-year-old female with significant past medical hist ory of diabetes since 2007, complicated with neuropathy, no retinopathy, no nephropathy, hypertension , hyperlipidemia, coronary artery disease, recent NE 2 weeks ago, status post cardiac cath at [facility]. According to the family, no mention of any stenting, and her kidney function was okay. The patient came after the cardiac cath, the patient was stable. The patient was discharge home. T hen after few days, the patient started having nausea and vomiting, cannot keep anything, for that re hong reported to the hospital. When she came to the hospital, the patient had elevated BUN and creat inine. Creatinine was 5, GFR of 9. For that reason, we have been consulted. We have started the bubba ch on hydration, the patient received potassium supplement. The patient started slightly feeling better. The patient denied other exposure to contrast other than the 2 weeks ago, patient being taki ng Advil 2 tablets every other day. For the last few months, apparently, she was discharged on lisin opril and Lasix, but being on lisinopril for a long time. The patient denied any rash, no recent oth er medication. Also, the patient was placed on Levaquin. After we started hydration, creatinine trended down, creatinine was down to 3.5, GFR of 13. The morro ent is slightly feeling better. Past Medical History: Include, 1.Diabetes, no nephropathy. 2.Hypertension. 3.Coronary artery disease, status post cardiac cath. Social History: Ex-smoker. Denied alcohol. Denied drug abuse. Family History: Positive for hypertension and diabetes. Review of Systems: Head and Neck: No red eye. No ear pain. GI: Has nausea and vomiting. : No polyuria, no dysuri a, no hematuria. Merchandising Manager: No vaginal discharge. Respiratory: No shortness of breath. Cardiovascular: No edema, no chest pain recently. Neuro: Has neuropathy. Musculoskeletal: No joint pain. Physical Examination: General: When I saw the patient, the patient is lying in bed comfortable, not in any distress. Lyn l Signs: BP 118/81, pulse of 80 and afebrile. The patient had good urine output. Chest: Clear to auscultation. Heart: S1, S2. Regular. Abdomen: Soft, nontender. Extremity: No edema. Neurolog ical: Alert and oriented x3. No focal. Home Medications: Include, 1.Lisinopril. 2.Atorvastatin. 3.Levaquin. 4.Lasix. 5.Levothyroxine. 6.Metoprolol. 7.Solu-Medrol. 8.Hydrochlorothiazide. 9.Ambien. Current medications in the hospital include heparin, levothyroxine, insulin, tramadol, and Ambien. Laboratory Data: WBC 7, H and H 12.5/38.4, platelet of 245, eosinophil of 2%, absolute count of the eosinophil only 100. Sodium 138, potassium 3.3, bicarb 23, BUN 54, creatinine 3.5, calcium 8.4, magnesium 1.5, uric acid 1 4.6. TSH 6.1. PTH 89. Urinalysis: Specific gravity of 1.015, earlier it was 1.030; wbc less than 5, bacteria loaded, prote in creatinine is still pending. INR of 1.6. Assessment And Plan: 1.Acute kidney injury secondary to prerenal/superimposed with Lasix and lisinopril/possible atheroem bolic secondary to contrast and angiogram recently/contrast induced nephropathy, nonoliguric. No hyp erkalemia or acidosis, looks still on the dry side. I am going to resume IV fluid. Resume normal sa line at 50 per hour, and we will follow up the patient. I am going to go ahead and send for renal ul trasound, eosinophil, and complement to rule out any atheroembolic, and we will follow up the patient . 2.Hypertension, currently low blood pressure. With the presence of acute kidney injury, I am going to hold on any JANINE inhibitor or Lasix for the time being. 3.Diabetes as by primary. 4.Atrial fibrillation as by Cardiology. Thank you, Dr. Oneal for allowing us to participate in the care of your patient. EDE/ELISHA Voice ID: [id number] Report ID: [id number]
[2018-01-10] MEDS ORDERED: ATORVASTATIN 10 MG TAB PO SCH (21:00)
[2018-01-10] MEDS ORDERED: ZOLPIDEM TARTRATE 10 MG TABLET PO SCH (21:00)
[2018-01-10] MEDS: METOPROLOL XL 50 MG TAB PO SCH (21:48)
[2018-01-10] MEDS: APIXABAN 5 MG TABLET PO SCH (21:48)
--- NOTE | 2018-01-10 22:42 | P.PN ---
Subjective Date of Service: 01/11/18 Chief Complaint: Acute renal failure Patient seen and examined at bedside. No family at bedside. Case discussed with nursing staff. Patient reports still having nausea though it is improved. States she wants to go home. Denies any chest pain, shortness of breath, abdominal pain or headache. Review of Systems As noted above Physical Examination - Vital Signs Temperature: 97.0 F Blood Pressure: 108/52 Pulse: 82 Respirations: 18 Pulse Ox (%): 99 - Physical Exam General: Alert, Mild distress HEENT: Atraumatic, PERRLA, EOMI Neck: Supple, JVD not distended Respiratory: Clear to auscultation bilaterally, Normal air movement Cardiovascular: Regular rate/rhythm, Normal S1 S2 Gastrointestinal: Normal bowel sounds, No tenderness Musculoskeletal: No tenderness Integumentary: No rashes Neurological: Normal speech, Normal tone, Normal affect Assessment And Plan - Current Problems (Diagnosis) (1) Acute renal injury Onset Date: 01/10/18 Current Visit: Yes Status: Acute Plan: Patient was admitted to the to acute renal injury. This could be due to contrast induced kidney injury plus excess diuresis or potential emboli from recent catheterization. Continue IV fluids Nephrology consulted. (2) Nausea & vomiting Onset Date: 01/10/18 Current Visit: Yes Status: Acute Plan: Improved. Continue the Zofran for nausea/vomiting. Qualifiers: Vomiting type: unspecified Vomiting Intractability: unspecified Qualified Code(s): R11.2 - Nausea with vomiting, unspecified (3) Volume depletion Onset Date: 01/10/18 Current Visit: Yes Status: Acute Plan: Continue IV fluids. (4) Weakness Onset Date: 01/10/18 Current Visit: Yes Status: Acute Plan: Improved. Work with physical therapy
[2018-01-11] MEDS: NA CHLORIDE 0.9% 1,000 ML IV SCH (05:15)
[2018-01-11] MEDS ORDERED: LEVOTHYROXINE SOD 0.088 MG TAB PO SCH (06:00)
[2018-01-11] MEDS: INSULIN -REGULAR HUMAN 50 UNIT/0.5 ML ML SQ SCH ×2 (07:30→11:30)
--- NOTE | 2018-01-11 08:03 | ECHO ---
HEIGHT: 5 ft 4 in WEIGHT: 198 lb 9.6 oz DATE OF STUDY: 01/10/[address]: Ta Bhandari MD 2-DIMENSIONAL: YES M.MODE: YES DOPPLER: YES COLOR FLOW: YES TDS: NO PORTABLE: NO DEFINITY: NO BUBBLE STUDY: NO DIAGNOSIS: EVALUATE CARDIAC FUNCTION CARDIAC HISTORY: CATHERIZATION: YES SURGERY: NO PROSTHETIC VALVE: NO PACEMAKER: NO MEASUREMENTS (cm) DIASTOLIC (NORMALS) SYSTOLIC (NORMALS) IVSd 1.2 (0.6-1.2) LA Diam 3.7 (1.9-4.0) LVEF 58% LVIDd 4.4 (3.5-5.7) LVIDs 3.0 (2.0-3.5) %FS 31% LVPWd 1.2 (0.6-1.2) Ao Diam 3.4 (2.0-3.7) 2 DIMENSIONAL ASSESSMENT: RIGHT ATRIUM: NORMAL LEFT ATRIUM: NORMAL RIGHT VENTRICLE: NORMAL LEFT VENTRICLE: NORMAL TRICUSPID VALVE: NORMAL MITRAL VALVE: NORMAL PULMONIC VALVE: NORMAL AORTIC VALVE: NORMAL PERICARDIAL EFFUSION: NONE AORTIC ROOT: NORMAL LEFT VENTRICULAR WALL MOTION: DECREASED LEFT VENTRICULAR COMPLIANCE. DOPPLER/COLOR FLOW: MILD TRICUPSID REGURGITATION. COMMENTS: MILD TRICUPSID REGURGITATION. DECREASED LEFT VENTRICULAR COMPLIANCE. NORMAL LEFT VENTRICULAR SIZE. NORMAL LEFT VENTRICULAR EJECTION FRACTION. TECHNOLOGIST: Manjula LEBLANC
[2018-01-11] MEDS ORDERED: hydroCHLOROthiazide 12.5 MG CAP PO SCH (09:00)
[2018-01-11] MEDS ORDERED: INSULIN GLARGINE 100 UNITS/ML SQ SCH (09:00)
[2018-01-11] MEDS ORDERED: HOME MED 1 EA UNK (Lisinopril/Hydrochlorothiazide [Lisinopril-Hctz 20-12.5 Mg Tab] 1 TAB) PO SCH (09:00)
[2018-01-11] MEDS ORDERED: LISINOPRIL 20 MG TAB PO SCH (09:00)
[2018-01-11] MEDS ORDERED: DULOXETINE 30 MG CAP PO SCH (09:00)
[2018-01-11] MEDS ORDERED: methylPREDNISolone 4 MG TAB PO SCH (09:00)
[2018-01-11] MEDS: HEPARIN 5000 UNIT/ML 1 ML VIAL SQ SCH (09:29)
[2018-01-11] MEDS: METOPROLOL XL 50 MG TAB PO SCH (09:29)
[2018-01-11] MEDS: APIXABAN 5 MG TABLET PO SCH (09:32)
--- NOTE | 2018-01-12 02:59 | PN ---
Date of Progress Note: 01/11/2018 Chief Complaint: Acute kidney injury. History Of Present Illness: Acute kidney injury, severe, nonoliguric, associated with prerenal azote juan manuel, nonoliguric ATN. Creatinine level has gradually improved from 5.0 to 1.8 over last 48 hours. Review of Systems: The patient is feeling better. Denies PND, orthopnea. Physical Examination: Lungs: Clear to auscultation bilaterally. Heart: S1-S2. Abdomen: Soft, benign. Extremities: No edema. Laboratory Data: Blood work: Sodium 140, potassium 4.0, chloride 106, CO2 26, BUN , creat inine 1.8, glucose , calcium 7.8, and phosphorus 3.0. Impression And Plan: 1.Acute kidney injury in recovery phase. Continue the renal diet and monitor electrolytes closely. Avoid nonsteroidal anti-inflammatory medication. 2.Hyperlipidemia. The patient does not have myopathy. Monitor CK level. 3.Coronary artery disease. Recently, she was admitted for myocardial infarction. The patient will follow up with operational review sergeant. 4.Nausea, vomiting, resolved. The patient is maintaining good p.o. fluid intake. Monitor fluid bal ance. 5.History of acute kidney injury. The patient will avoid nonsteroidal anti-inflammatory medication. ZHENG/ELISHA Voice ID: [id number] Report ID: [id number]
== END 2018-01-11 14:37 | disposition home or self-care (01) | DRG 684 ==
LOC: ER 16:30 → ERHOLD 20:59 → 2ND 23:41
PROVIDERS: ADMIT Internal Medicine; ATTEND Family Medicine
DX: N17.0 Acute kidney failure with tubular necrosis (principal); Z79.4 Long term (current) use of insulin; Z79.84 Long term (current) use of oral hypoglycemic drugs; I25.10 Atherosclerotic heart disease of native coronary artery without angina pectoris; I10 Essential (primary) hypertension; I48.91 Unspecified atrial fibrillation; R11.2 Nausea with vomiting, unspecified; R53.1 Weakness; E86.0 Dehydration; E11.40 Type 2 diabetes mellitus with diabetic neuropathy, unspecified; I25.2 Old myocardial infarction; T50.1X5A Adverse effect of loop [high-ceiling] diuretics, initial encounter; T46.4X5A Adverse effect of angiotensin-converting-enzyme inhibitors, initial encounter; T50.8X5A Adverse effect of diagnostic agents, initial encounter; Y92.019 Unspecified place in single-family (private) house as the place of occurrence of the external cause; E78.5 Hyperlipidemia, unspecified; Z79.01 Long term (current) use of anticoagulants
CPT/HCPCS: 36415; 71045; 76770; 80048; 80069; 80076; 81003; 81015; 82550; 82962; 83735; 83880; 83970; 84132; 84439; 84443; 84484; 84550; 85025; 85610; 86160; 93005; 93306; 96365; 96375; 99285; J1644; J2405; J3010; J3475; J7030; J7509